=== PATIENT | male | born 1950 | race African-American/Black ===

== ENCOUNTER 2017-08-26 16:09 | Emergency (ER) | payer MEDICARE ==
--- NOTE | 2017-08-26 16:44 | CT ---
EXAM: NONCONTRAST HEAD CT 08/26/17 COMPARISON: 01/13/17 HISTORY: Trauma. Fall. TECHNIQUE: Noncontrast head CT is performed from the skull base to skull vertex. FINDINGS: No parenchymal hemorrhage. No extra-axial hematoma. No midline shift. Basilar cisterns are patent. Ag e appropriate atrophy. Cortical soler-white matter differentiation is preserved. Ventricles and sulci are patent and symmetric. Chronic small vessel ischemic changes of the white mat ter are identified. 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 Calvarium is intact. Adequate aeration of the sinuses and mastoid air cells. IMPRESSION: No intracranial posttraumatic sequela. POS: [facility]
--- NOTE | 2017-08-26 16:55 | CT ---
CT CERVICAL SPINE WITHOUT CONTRAST 08/26/17 HISTORY: Fall. Trauma. Pain. COMPARISON: None. CORRELATION: Chest CT 07/31/13. TECHNIQUE: CT cervical spine is performed without contrast. Reformatted images are submitted for interpretation. FINDINGS: Predental space is normal. Odontoid process is intact. No craniocervical dislocation. Occipital condy les are intact. Adequate alignment of the intra-articular facets as well as the lateral masses of C1 and C2. Soft tissue neck structures are unremarkable. Chronic change in the lung apices due to treatment of p revious lung cancer. Atherosclerosis of the aorta is identified. There is no epidural hematoma. The are varying degrees of central canal stenosis and foraminal narrowing on the basis of degenerativ e change. Evaluation is limited by technique. Cervical spine vertebral body height is maintained. No fracture. Vacuum disc phenomenon and osteophyte formation throughout the cervical spine. IMPRESSION: 1. No fracture. 2. Moderate degenerative change and central canal stenosis at C4-C5. Evaluation is limited by mitchel thomas. POS: [facility]
--- NOTE | 2017-08-26 17:09 | RAD ---
THREE VIEWS LEFT SHOULDER: 08/26/17 HISTORY: Trauma, fall. Pain. COMPARISON: None. FINDINGS: Glenohumeral joint space is preserved. No acute fracture. No dislocation. The visualized left ribs ar e unremarkable. Old distal left clavicle fracture is noted. IMPRESSION: 1. No fracture or dislocation. 2. Remote distal clavicle fracture. POS: [facility]
== END 2017-08-26 19:04 | disposition home or self-care (01) ==
LOC: ERS 16:09
DX: S40.012A Contusion of left shoulder, initial encounter (principal); E11.9 Type 2 diabetes mellitus without complications; I10 Essential (primary) hypertension; Z86.73 Personal history of transient ischemic attack (TIA), and cerebral infarction without residual deficits; Z87.891 Personal history of nicotine dependence; W19.XXXA Unspecified fall, initial encounter
CPT/HCPCS: 70450; 72125